=== PATIENT | male | born 1945 | race Two or more races ===

== ENCOUNTER 2017-06-01 16:16 | Inpatient (IN) | payer OTHER, MEDICAID ==
[~2017-06-01] VITALS: Ht 195.6 cm; Wt 174.6 kg
[2017-06-01] MEDS ORDERED: ACETAMINOPHEN 325 MG TAB PO ONE (16:59)
[2017-06-01] MEDS ORDERED: ACETAMINOPHEN 650 mg PER 20 mL UD PO ONE (17:00)
[2017-06-01 18:54] LABS: Basophils # (auto) 0.1 uL; Eosinophils # (auto) 0 uL; Eosinophils % (auto) 0.1 % (0.0-7.0); Hemoglobin 15.9 g/dL (13.5-17.5); Lymphocytes # (auto) 1.6 uL; Neutrophils # (auto) 9.4 uL; Red Cell Distribution Width 12.9 % (11.8-14.3); White Blood Cell 12.1 10^3/uL (4.4-10.8)
[2017-06-01 18:55] LABS: Basophils % (auto) 0.9 % (0.0-2.0); Hematocrit 45.2 % (41.0-53.0); Lymphocytes % (auto) 12.9 % (10.0-50.0); Mean Corpuscular Hemoglobin 35.3 pg (28.0-32.0); Mean Corpuscular Hgb Conc. 35.3 g/dL (32.0-36.0); Mean Corpuscular Volume 100.2 fL (80.0-100.0); Monocytes % (auto) 8.6 % (0.0-12.0); Neutrophils % (auto) 77.5 % (37.0-80.0); Platelet Count (auto) 162 10^3/uL (140-450); Red Blood Cells 4.51 10^6/uL (4.5-5.90)
[2017-06-01 19:19] LABS: Alanine Aminotransferase 23 U/L (16-61); Albumin 3.8 g/dL (3.4-5.0); Alkaline Phosphatase 83 U/L (45-117); Anion Gap 11 (5-15); Aspartate Aminotransferase 14 U/L (15-37); BUN/Creatinine Ratio 12.4; Bilirubin, Total 1.8 mg/dL (0.2-1.0); Blood Urea Nitrogen 13 mg/dL (7-18); Calcium 8.6 mg/dL (8.5-10.1); Carbon Dioxide 21 mmol/L (21-32); Chloride 101 mmol/L (98-107); GFR African American 90 mL/min; GFR Non-African American 74 mL/min; Glucose 121 mg/dL (74-106); Potassium 3.8 mmol/L (3.5-5.1); Sodium 133 mmol/L (136-145); Total Protein 8.1 g/dL (6.4-8.2)
[2017-06-01 22:09] LABS: Urine Bacteria NONE SEEN /hpf (None Seen); Urine Blood Negative /uL (Negative); Urine Mucus FEW (None Seen); Urine Specific Gravity 1.028 (1.001-1.035); Urine WBC 2 /hpf (0 - 3)
[2017-06-01] MEDS ORDERED: NITROGLYCERIN 0.4 MG SL TAB SL PRN (22:45)
[2017-06-01] MEDS ORDERED: cefTRIAXone 1GM/10ml IVPUSH 10 ML IV ONE (22:45)
[2017-06-01] MEDS ORDERED: ACETAMINOPHEN 325 MG TAB PO PRN (22:45)
[2017-06-01] MEDS ORDERED: TEMAZEPAM 15 MG CAP PO PRN (22:45)
[2017-06-01] MEDS ORDERED: ALBUTEROL SULF 2.5 MG/0.5ML(0.5%) NEB SOLN NEB PRN (22:45)
[2017-06-01] MEDS ORDERED: SODIUM CHLORIDE 0.9% 1,000 ML IV ONE (22:45)
[2017-06-01] MEDS ORDERED: ONDANSETRON HCL 4 MG/2 ML VIAL IV PRN (22:45)
[2017-06-01] MEDS ORDERED: MORPHINE SULF INJ 2 MG/ML SYRINGE 1ML IV PRN (22:45)
[2017-06-02] MEDS: SODIUM CHLORIDE 0.9% 1,000 ML IV SCH ×2 (01:51→12:22)
[2017-06-02 05:02] VITALS: BP 135/118
[2017-06-02 06:18] LABS: Basophils # (auto) 0 uL; Eosinophils # (auto) 0 uL; Hemoglobin 14.7 g/dL (13.5-17.5); Monocytes # (auto) 0.9 uL; Neutrophils # (auto) 8.4 uL; White Blood Cell 10.5 10^3/uL (4.4-10.8)
[2017-06-02 06:21] LABS: Basophils % (auto) 0.2 % (0.0-2.0); Eosinophils % (auto) 0.2 % (0.0-7.0); Hematocrit 41.6 % (41.0-53.0); Lymphocytes # (auto) 1.2 uL; Lymphocytes % (auto) 11.1 % (10.0-50.0); Mean Corpuscular Hgb Conc. 35.3 g/dL (32.0-36.0); Mean Corpuscular Volume 99.3 fL (80.0-100.0); Monocytes % (auto) 8.6 % (0.0-12.0); Neutrophils % (auto) 79.9 % (37.0-80.0); Nucleated Red Blood Cells % 0.1 %; Platelet Count (auto) 134 10^3/uL (140-450); Red Blood Cells 4.19 10^6/uL (4.5-5.90); Red Cell Distribution Width 12.7 % (11.8-14.3)
[2017-06-02 06:41] LABS: Potassium 3.7 mmol/L (3.5-5.1)
[2017-06-02 06:45] LABS: Albumin 3.3 g/dL (3.4-5.0); BUN/Creatinine Ratio 15.7; Calcium 8.4 mg/dL (8.5-10.1)
[2017-06-02 06:47] LABS: Bilirubin, Total 1.5 mg/dL (0.2-1.0); Total Protein 7.3 g/dL (6.4-8.2)
[2017-06-02] MEDS: cefTRIAXone 1GM/10ml IVPUSH 10 ML IV SCH (09:12)
[2017-06-02] MEDS: HYDROcodone-ACET 5/325MG TAB PO PRN ×2 (09:13→21:33)
[2017-06-02] MEDS ORDERED: ASPirin 81 mg TAB PO SCH (10:00)
[2017-06-02] MEDS: ENOXAPARIN SOD 40 MG/0.4 ML SYRINGE SC SCH (10:00)
[2017-06-02] MEDS: FAMOTIDINE 20 MG TAB PO SCH ×2 (10:27→21:32)
[2017-06-02] MEDS ORDERED: THIAMINE HCL 100 MG/ML 2ML VIAL IV ONE (11:45)
[2017-06-02] MEDS ORDERED: FOLIC ACID 1 MG in D5W 5% 50 ML IV ONE (11:45)
[2017-06-02 13:31] LABS: Folate (Folic Acid) 10.37 ng/mL (5.38-24)
[2017-06-02 16:56] VITALS: BP 122/60
[2017-06-02] MEDS ORDERED: LORazepam 2MG/ML-1ML VIAL IV PRN (17:15)
[2017-06-02] MEDS: carBAMazepine 200 MG TAB PO SCH (21:33)
[2017-06-02 22:00] VITALS: BP 116/69
[2017-06-03] MEDS: SODIUM CHLORIDE 0.9% 1,000 ML IV SCH (01:25)
[2017-06-03 05:00] VITALS: BP 113/79
[2017-06-03] MEDS: HYDROcodone-ACET 5/325MG TAB PO PRN ×3 (05:24→22:39)
[2017-06-03 06:49] LABS: Basophils # (auto) 0 uL; Eosinophils # (auto) 0.2 uL; Monocytes # (auto) 0.9 uL
[2017-06-03 06:52] LABS: Basophils % (auto) 0.3 % (0.0-2.0); Hematocrit 40.4 % (41.0-53.0); Hemoglobin 14.2 g/dL (13.5-17.5); Lymphocytes # (auto) 1.7 uL; Lymphocytes % (auto) 18.4 % (10.0-50.0); Mean Corpuscular Hemoglobin 35.1 pg (28.0-32.0); Mean Corpuscular Hgb Conc. 35.2 g/dL (32.0-36.0); Mean Corpuscular Volume 99.9 fL (80.0-100.0); Monocytes % (auto) 9.6 % (0.0-12.0); Neutrophils # (auto) 6.5 uL; Neutrophils % (auto) 69.7 % (37.0-80.0); Platelet Count (auto) 131 10^3/uL (140-450); Red Blood Cells 4.05 10^6/uL (4.5-5.90); Red Cell Distribution Width 12.8 % (11.8-14.3); White Blood Cell 9.4 10^3/uL (4.4-10.8)
[2017-06-03 07:21] LABS: Albumin 3.1 g/dL (3.4-5.0); BUN/Creatinine Ratio 15.9; Bilirubin, Total 1.1 mg/dL (0.2-1.0); Calcium 8.3 mg/dL (8.5-10.1); Potassium 3.6 mmol/L (3.5-5.1); Total Protein 7.1 g/dL (6.4-8.2)
[2017-06-03] MEDS: cefTRIAXone 1GM/10ml IVPUSH 10 ML IV SCH (09:50)
[2017-06-03] MEDS: ASPirin 81 mg TAB PO SCH (09:51)
[2017-06-03] MEDS: THIAMINE HCL 100 MG/ML 2ML VIAL IV SCH (09:51)
[2017-06-03] MEDS: ENOXAPARIN SOD 40 MG/0.4 ML SYRINGE SC SCH (09:51)
[2017-06-03] MEDS: FAMOTIDINE 20 MG TAB PO SCH ×2 (09:51→22:39)
[2017-06-03] MEDS: FOLIC ACID 1 MG in D5W 5% 50 ML IV SCH (09:52)
[2017-06-03] MEDS: carBAMazepine 200 MG TAB PO SCH ×2 (09:52→22:39)
[2017-06-03 13:00] VITALS: BP 129/71
[2017-06-03] MEDS ORDERED: AZITHROMYCIN 250 MG TAB PO ONE (13:30)
[2017-06-03 16:35] VITALS: BP 91/59
[2017-06-03 22:33] VITALS: BP 106/62
[2017-06-03] MEDS: AMOXICILLIN/CLAVUL 875 MG TAB PO SCH (22:38)
[2017-06-04 05:59] VITALS: BP 127/93
[2017-06-04 09:09] LABS: Alcohol, Urine < 3.0 mg/dL (0-5); Amphetamine Screen, Urine NEGATIVE (NEGATIVE); Barbiturate Scree,Urine NEGATIVE (NEGATIVE); Benzodiazephine Screen, Urine NEGATIVE (NEGATIVE); Cannabinoid Screen, Urine NEGATIVE (NEGATIVE); Cocaine Screen, Urine NEGATIVE (NEGATIVE); Phencyclidine Screen, Urine NEGATIVE (NEGATIVE)
[2017-06-04 09:10] LABS: Opiate Scree,Urine POSITIVE (NEGATIVE)
[2017-06-04 09:22] VITALS: BP 122/76
[2017-06-04] MEDS ORDERED: AMOX-277 PO (09:52)
[2017-06-04] MEDS ORDERED: IBUP600T27 PO (09:52)
[2017-06-04] MEDS ORDERED: ASPI81CH43 PO (09:52)
[2017-06-04] MEDS: ENOXAPARIN SOD 40 MG/0.4 ML SYRINGE SC SCH (09:59)
[2017-06-04] MEDS: ASPirin 81 mg TAB PO SCH (09:59)
[2017-06-04] MEDS: THIAMINE HCL 100 MG/ML 2ML VIAL IV SCH (09:59)
[2017-06-04] MEDS: AMOXICILLIN/CLAVUL 875 MG TAB PO SCH (09:59)
[2017-06-04] MEDS: FAMOTIDINE 20 MG TAB PO SCH (09:59)
[2017-06-04] MEDS: carBAMazepine 200 MG TAB PO SCH (09:59)
[2017-06-04] MEDS ORDERED: KETOROLAC TROMETH 30 MG/ML 1ML VIAL IV ONE ×2 (10:00→10:45)
[2017-06-04] MEDS ORDERED: AZITHROMYCIN 250 MG TAB PO SCH (10:00)
[2017-06-04] MEDS: FOLIC ACID 1 MG in D5W 5% 50 ML IV SCH (10:00)
[2017-06-04 11:00] VITALS: BP 122/76
[2017-06-04] MEDS ORDERED: KETOROLAC TROMETH 30 MG/ML 1ML VIAL ONE (11:17)
== END 2017-06-04 16:08 | disposition home or self-care (01) | DRG 871 ==
LOC: EDBD 16:16 → ER 16:22 → TELE 16:23 → TELE-EAST 06-02 16:07
PROVIDERS: ADMIT Nurse Practitioner; ATTEND Internal Medicine
DX: A41.9 Sepsis, unspecified organism (principal); G93.41 Metabolic encephalopathy; J44.9 Chronic obstructive pulmonary disease, unspecified; D75.89 Other specified diseases of blood and blood-forming organs; E87.1 Hypo-osmolality and hyponatremia; E78.5 Hyperlipidemia, unspecified; F17.200 Nicotine dependence, unspecified, uncomplicated; H66.92 Otitis media, unspecified, left ear; M54.2 Cervicalgia; Z79.82 Long term (current) use of aspirin
CPT/HCPCS: 36415; 70450; 70553; 71045; 80053; 80061; 80307; 81001; 82607; 82746; 82962; 83605; 84443; 84484; 85025; 87040; 93005; 94761; 95819; 96361; 96374; 96375; 97163; J1885; J7060

== ENCOUNTER 2021-06-07 07:54 | Emergency (ER) | payer OTHER, MEDICAID ==
[~2021-06-07] VITALS: Ht 195.6 cm; Wt 104.3 kg
[~2021-06-07 07:54] MED LIST: AMOX-277 PO; ASPI81CH43 PO; IBUP600T27 PO
[2021-06-07 09:40] LABS: Red Blood Cells 4.47 10^6/uL (4.5-5.90); White Blood Cell 3.8 10^3/uL (4.4-10.8)
[2021-06-07 09:42] LABS: Hemoglobin 15.3 g/dL (13.5-17.5); Mean Corpuscular Hemoglobin 34.2 pg (28.0-32.0); Mean Corpuscular Volume 100.7 fL (80.0-100.0); Red Cell Distribution Width 12.5 % (11.8-14.3)
[2021-06-07 09:47] LABS: Basophils % (manual) 0 (0.0-2.0); Blast Cells 0; Eosinophils % (manual) 0 (0-7); Metamyelocytes % 0; Promyelocytes % 0; Reactive Lymphocytes 0
[2021-06-07 10:01] LABS: Albumin 3.7 g/dL (3.4-5.0); Calcium 8.6 mg/dL (8.5-10.1); Potassium 4.2 mmol/L (3.5-5.1)
[2021-06-07 10:06] LABS: BUN/Creatinine Ratio 13.9; Bilirubin, Total 1.4 mg/dL (0.2-1.0); Total Protein 7.7 g/dL (6.4-8.2)
[2021-06-07 10:11] LABS: Band Neutrophils % (manual) 9; Lymphocytes % (manual) 32 (10.0-50.0)
[2021-06-07 10:12] LABS: Monocytes % (manual) 18 (0-12); Myelocytes % 1
[2021-06-07 11:07] LABS: Urine Bacteria NONE SEEN /hpf (None Seen); Urine Blood Negative /uL (Negative); Urine Mucus FEW (None Seen); Urine WBC 1 /hpf (0 - 3)
[2021-06-07 12:30] VITALS: BP 110/67
== END 2021-06-07 13:08 | disposition home or self-care (01) ==
LOC: ER 07:54
DX: U07.1 COVID-19 (principal); I48.91 Unspecified atrial fibrillation; Z86.73 Personal history of transient ischemic attack (TIA), and cerebral infarction without residual deficits
CPT/HCPCS: 36415; 71045; 80053; 81001; 83036; 83605; 84484; 85007; 85027; 87040; 87426; 93005

== ENCOUNTER 2021-08-08 22:36 | Emergency (ER) | payer OTHER, MEDICAID ==
[~2021-08-08] VITALS: Ht 195.6 cm; Wt 104.3 kg
[2021-08-08 23:36] LABS: Hematocrit 44.7 % (41.0-53.0); Mean Corpuscular Hemoglobin 34.6 pg (28.0-32.0); White Blood Cell 6.1 10^3/uL (4.4-10.8)
[2021-08-08 23:38] LABS: Basophils # (auto) 0.1 10 ^3/uL (0-0.2); Basophils % (auto) 0.8 % (0.0-2.0); Eosinophils # (auto) 0.1 10 ^3/uL (0-0.8); Eosinophils % (auto) 2.1 % (0.0-7.0); Hemoglobin 15.5 g/dL (13.5-17.5); Lymphocytes # (auto) 1.6 10 ^3/uL (0.4-5.4); Lymphocytes % (auto) 26.2 % (10.0-50.0); Mean Corpuscular Hgb Conc. 34.7 g/dL (32.0-36.0); Mean Corpuscular Volume 99.8 fL (80.0-100.0); Monocytes # (auto) 0.5 10 ^3/uL (0-1.3); Monocytes % (auto) 7.6 % (0.0-12.0); Neutrophils # (auto) 3.9 10 ^3/uL (1.6-8.6); Neutrophils % (auto) 63.3 % (37.0-80.0); Nucleated Red Blood Cells % 0.3 %; Red Blood Cells 4.48 10^6/uL (4.5-5.90); Red Cell Distribution Width 12.8 % (11.8-14.3)
[2021-08-08 23:43] LABS: Albumin 3.5 g/dL (3.4-5.0); BUN/Creatinine Ratio 13.3; Calcium 8.8 mg/dL (8.5-10.1); Potassium 3.9 mmol/L (3.5-5.1)
[2021-08-09 07:22] LABS: Urine Amorphous Crystal FEW /hpf (None Seen); Urine Bacteria FEW /hpf (None Seen); Urine Blood Negative /uL (Negative); Urine Mucus FEW (None Seen); Urine WBC 1 /hpf (0 - 3)
[2021-08-09 17:36] VITALS: BP 93/55
== END 2021-08-09 18:00 | disposition home or self-care (01) ==
LOC: ER 22:36
DX: I63.9 Cerebral infarction, unspecified (principal); R29.6 Repeated falls; Z20.822 Contact with and (suspected) exposure to COVID-19
CPT/HCPCS: 36415; 70450; 80053; 81001; 85025

== ENCOUNTER 2021-11-15 19:13 | Emergency (ER) | payer OTHER, MEDICAID ==
[~2021-11-15] VITALS: Ht 182.9 cm; Wt 90.7 kg
[2021-11-15 19:13] VITALS: BP 101/57
[2021-11-15 19:40] LABS: Basophils # (auto) 0 10 ^3/uL (0-0.2); Basophils % (auto) 0.7 % (0.0-2.0); Eosinophils # (auto) 0.1 10 ^3/uL (0-0.8); Monocytes # (auto) 0.4 10 ^3/uL (0-1.3); Neutrophils # (auto) 3.9 10 ^3/uL (1.6-8.6); Nucleated Red Blood Cells % 0.1 %
[2021-11-15 19:43] LABS: Eosinophils % (auto) 1.7 % (0.0-7.0); Hematocrit 43.6 % (41.0-53.0); Lymphocytes # (auto) 1.7 10 ^3/uL (0.4-5.4); Lymphocytes % (auto) 27.3 % (10.0-50.0); Mean Corpuscular Hemoglobin 34.4 pg (28.0-32.0); Mean Corpuscular Hgb Conc. 34.4 g/dL (32.0-36.0); Monocytes % (auto) 6.3 % (0.0-12.0); Red Blood Cells 4.36 10^6/uL (4.5-5.90); Red Cell Distribution Width 13.5 % (11.8-14.3); White Blood Cell 6.1 10^3/uL (4.4-10.8)
[2021-11-15 19:58] LABS: Albumin 3.5 g/dL (3.4-5.0); Calcium 8.4 mg/dL (8.5-10.1); Magnesium 2.2 mg/dL (1.6-2.6); Potassium 3.7 mmol/L (3.5-5.1)
[2021-11-15 20:01] LABS: BUN/Creatinine Ratio 13.4
[2021-11-15 20:04] LABS: Bilirubin, Total 0.8 mg/dL (0.2-1.0); Total Protein 6.7 g/dL (6.4-8.2)
== END 2021-11-16 02:17 | disposition left against medical advice (07) ==
LOC: ER 19:13
DX: R07.89 Other chest pain (principal); Z53.21 Procedure and treatment not carried out due to patient leaving prior to being seen by health care provider
CPT/HCPCS: 36415; 80053; 83735; 83880; 84443; 84484; 85025; 93005

== ENCOUNTER 2022-02-12 09:57 | Emergency (ER) | payer OTHER, MEDICAID ==
[~2022-02-12] VITALS: Ht 185.4 cm; Wt 81.8 kg
[2022-02-12 09:57] VITALS: BP 116/85
[2022-02-12] MEDS ORDERED: SODIUM CHLORIDE 0.9% 1,000 ML IV ONE ×2 (10:30)
[2022-02-12 10:46] LABS: Eosinophils # (auto) 0.1 10 ^3/uL (0-0.8); Lymphocytes # (auto) 1.6 10 ^3/uL (0.4-5.4); Mean Corpuscular Volume 99.8 fL (80.0-100.0); Monocytes # (auto) 0.4 10 ^3/uL (0-1.3)
[2022-02-12 10:48] LABS: Basophils # (auto) 0.1 10 ^3/uL (0-0.2); Eosinophils % (auto) 1.3 % (0.0-7.0); Hematocrit 48.5 % (41.0-53.0); Hemoglobin 16.7 g/dL (13.5-17.5); Lymphocytes % (auto) 28.7 % (10.0-50.0); Mean Corpuscular Hemoglobin 34.3 pg (28.0-32.0); Mean Corpuscular Hgb Conc. 34.4 g/dL (32.0-36.0); Monocytes % (auto) 6.6 % (0.0-12.0); Neutrophils # (auto) 3.5 10 ^3/uL (1.6-8.6); Neutrophils % (auto) 62.4 % (37.0-80.0); Nucleated Red Blood Cells % 0.2 %; Red Blood Cells 4.86 10^6/uL (4.5-5.90); Red Cell Distribution Width 13.3 % (11.8-14.3); White Blood Cell 5.7 10^3/uL (4.4-10.8)
[2022-02-12] MEDS ORDERED: ONDANSETRON HCL 4 MG/2 ML VIAL IV ONE (11:00)
[2022-02-12 11:15] LABS: Calcium 8.9 mg/dL (8.5-10.1); Potassium 4.1 mmol/L (3.5-5.1)
[2022-02-12 11:22] LABS: Albumin 3.9 g/dL (3.4-5.0); BUN/Creatinine Ratio 12.6; Bilirubin, Total 1.5 mg/dL (0.2-1.0); Total Protein 7.2 g/dL (6.4-8.2)
[2022-02-12 13:27] LABS: INR 1.14 (0.9-1.15)
== END 2022-02-12 14:13 | disposition left against medical advice (07) ==
LOC: ER 09:57 → EDBD 09:57 → ER 14:13
DX: S09.90XA Unspecified injury of head, initial encounter (principal); I48.91 Unspecified atrial fibrillation; F03.90 Unspecified dementia, unspecified severity, without behavioral disturbance, psychotic disturbance, mood disturbance, and anxiety; I50.9 Heart failure, unspecified; J44.9 Chronic obstructive pulmonary disease, unspecified; Z90.89 Acquired absence of other organs; W19.XXXA Unspecified fall, initial encounter; Z53.29 Procedure and treatment not carried out because of patient's decision for other reasons; Y93.89 Activity, other specified; Y92.89 Other specified places as the place of occurrence of the external cause; Y99.8 Other external cause status
CPT/HCPCS: 36415; 70450; 71045; 80053; 84484; 85025; 85610; 93005; 96361; 96374; 99285; J2405; J7030

== ENCOUNTER 2022-04-16 09:23 | Emergency (ER) | payer OTHER, MEDICAID ==
[~2022-04-16] VITALS: Ht 190.5 cm; Wt 100.0 kg
[2022-04-16 10:34] VITALS: BP 137/82
[2022-04-16 12:15] LABS: Eosinophils # (auto) 0 10 ^3/uL (0-0.8); Eosinophils % (auto) 0.5 % (0.0-7.0); Lymphocytes # (auto) 1.3 10 ^3/uL (0.4-5.4)
[2022-04-16 12:17] LABS: Basophils # (auto) 0 10 ^3/uL (0-0.2); Basophils % (auto) 0.5 % (0.0-2.0); Hematocrit 48.1 % (41.0-53.0); Hemoglobin 16.5 g/dL (13.5-17.5); Lymphocytes % (auto) 14.1 % (10.0-50.0); Mean Corpuscular Hemoglobin 34.9 pg (28.0-32.0); Mean Corpuscular Hgb Conc. 34.3 g/dL (32.0-36.0); Mean Corpuscular Volume 101.7 fL (80.0-100.0); Monocytes # (auto) 0.6 10 ^3/uL (0-1.3); Monocytes % (auto) 6.4 % (0.0-12.0); Neutrophils # (auto) 7.4 10 ^3/uL (1.6-8.6); Neutrophils % (auto) 78.5 % (37.0-80.0); Nucleated Red Blood Cells % 0.1 %; Red Blood Cells 4.73 10^6/uL (4.5-5.90); White Blood Cell 9.5 10^3/uL (4.4-10.8)
[2022-04-16 13:39] LABS: Potassium 4.3 mmol/L (3.5-5.1)
[2022-04-16 13:40] LABS: Albumin 3.8 g/dL (3.4-5.0); BUN/Creatinine Ratio 8.2; Calcium 9.4 mg/dL (8.5-10.1)
[2022-04-16 13:41] LABS: Bilirubin, Total 1.3 mg/dL (0.2-1.0); Total Protein 7.9 g/dL (6.4-8.2)
[2022-04-16] MEDS ORDERED: ACETAMINOPHEN 325 MG TAB PO ONE (14:00)
== END 2022-04-16 17:02 | disposition home or self-care (01) ==
LOC: ER 09:23
DX: I48.91 Unspecified atrial fibrillation (principal); M54.2 Cervicalgia; I50.9 Heart failure, unspecified; J44.9 Chronic obstructive pulmonary disease, unspecified; Z86.73 Personal history of transient ischemic attack (TIA), and cerebral infarction without residual deficits; Z90.89 Acquired absence of other organs
CPT/HCPCS: 36415; 70450; 70490; 71045; 80053; 84484; 85025

== ENCOUNTER 2023-11-30 17:16 | Emergency (ER) | payer OTHER, MEDICAID ==
[~2023-11-30] VITALS: Ht 195.6 cm; Wt 90.9 kg
[~2023-11-30 17:16] MED LIST changes: -AMOX-277 PO; +AMOX875T4 PO; +IBUP-1454 PO; -IBUP600T27 PO
[2023-11-30 18:10] VITALS: PULSE 78; RESP 14; O2SAT 95
[2023-11-30] MEDS: SODIUM CHLORIDE 0.9% 500 ML IVB ONE (18:12)
[2023-11-30 18:32] LABS: Chloride 105 mmol/L (98-107); Potassium 3.7 mmol/L (3.5-5.1); Sodium 137 mmol/L (136-145)
[2023-11-30 18:33] VITALS: TEMP 97.9
[2023-11-30 18:33] LABS: Anion Gap 13 (5-15); Calcium 9.6 mg/dL (8.5-10.1); Carbon Dioxide 19 mmol/L (20-30)
[2023-11-30 18:36] LABS: Basophils # (auto) 0 10 ^3/uL (0-0.2); Basophils % (auto) 0.5 % (0.0-2.0); Eosinophils # (auto) 0.1 10 ^3/uL (0-0.8); Monocytes # (auto) 0.7 10 ^3/uL (0-1.3)
[2023-11-30 18:38] LABS: BUN/Creatinine Ratio 12.5 (10.0-20.0); Blood Urea Nitrogen 13 mg/dL (9-23); Eosinophils % (auto) 1.2 % (0.0-7.0); Glucose 91 mg/dL (74-106); Hematocrit 49.5 % (41.0-53.0); Lymphocytes # (auto) 1.9 10 ^3/uL (0.4-5.4); Lymphocytes % (auto) 21.7 % (10.0-50.0); Mean Corpuscular Hemoglobin 34.2 pg (28.0-32.0); Mean Corpuscular Hgb Conc. 34.4 g/dL (32.0-36.0); Mean Corpuscular Volume 99.4 fL (80.0-100.0); Monocytes % (auto) 7.6 % (0.0-12.0); Nucleated Red Blood Cells % 0.5 %; Red Blood Cells 4.98 10^6/uL (4.5-5.90); Red Cell Distribution Width 13.3 % (11.8-14.3); White Blood Cell 8.7 10^3/uL (4.4-10.8)
[2023-11-30 18:39] LABS: Blood Alcohol < 3.0 mg/dL (<10)
[2023-12-01 01:17] LABS: Urine Bacteria MANY /hpf (None Seen); Urine Blood 3+ /uL (Negative); Urine Clarity Ex.Turbid (Clear); Urine Color Light-Orange (Yellow); Urine Mucus FEW (None Seen); Urine Protein, UAD 2+ (Negative); Urine Specific Gravity 1.019 (1.001-1.035); Urine Urobilinogen Normal (Negative); Urine WBC 3582 /hpf (0 - 3); Urine WBC Clumps PRESENT /hpf (None Seen)
[2023-12-01 07:45] VITALS: PULSE 77; RESP 16; O2SAT 94
[2023-12-01] MEDS ORDERED: LEVO500T91 PO (09:24)
[2023-12-01] MEDS: cefTRIAXone 1GM/50ML D5W 50 ML IV ONE (10:13)
[2023-12-01 13:00] VITALS: BP 115/75; PULSE 72; RESP 17; O2SAT 97
== END 2023-12-01 14:43 | disposition home or self-care (01) ==
LOC: ER 17:16
DX: R62.7 Adult failure to thrive (principal); F03.90 Unspecified dementia, unspecified severity, without behavioral disturbance, psychotic disturbance, mood disturbance, and anxiety; J44.9 Chronic obstructive pulmonary disease, unspecified; I50.9 Heart failure, unspecified; R41.82 Altered mental status, unspecified; Z86.73 Personal history of transient ischemic attack (TIA), and cerebral infarction without residual deficits; Z68.23 Body mass index [BMI] 23.0-23.9, adult
CPT/HCPCS: 36415; 70450; 80048; 80320; 81001; 82962; 85025; 93005; 96361; 96365; 99285; J0696; J7040